=== PATIENT | male | born 1960 | race Caucasian/White ===

== ENCOUNTER 2017-11-13 18:38 | Inpatient (IN) | payer MEDICARE ==
--- NOTE | 2017-11-13 19:04 | ED ---
General Adult HPI - General Chief complaint: Chest Pain Stated complaint: chest pain Time Seen by Provider: 11/13/17 18:41 Source: patient, EMS, RN notes reviewed, old records reviewed Mode of arrival: EMS Limitations: no limitations - History of Present Illness Initial comments: This is a 49-year-old male to the ER for evaluation. This patient resents today for evaluation regards to chest pain. Severe anterior chest pain with history of heart disease. Patient has a complicated medical history. Patient has continued chest pain currently chest pain cervical he was at [facility] earlier today was going through withdrawal from alcohol. Denies nausea vomiting , denies fever cough or congestion MD Complaint: Chest pain -: hour(s) Location: chest, back, left Radiation: extremity Severity scale (1-10): 6 Quality: aching Consistency: constant Improves with: none Worsens with: none Associated Symptoms: shortness of breath, weakness Treatments Prior to Arrival: none - Related Data Home Medications Medication Instructions Recorded Confirmed Acetaminophen Tab [Tylenol] 650 mg PO Q4H PRN 11/13/17 11/13/17 Atorvastatin [Lipitor] 40 mg PO DAILY@62911/13/17 11/13/17 Chlorpheniramine Maleate 4 mg PO Q4H PRN 11/13/17 11/13/17 [Chlor-Trimeton] Folic Acid 1 mg PO DAILY@62911/13/17 11/13/17 Ibuprofen [Motrin] 600 mg PO Q6H PRN 11/13/17 11/13/17 Multivitamins, Thera [Multivitamin 1 tab PO DAILY 11/13/17 11/13/17 (formulary)] Pantoprazole Sodium [Protonix] 40 mg PO DAILY@62911/13/17 11/13/17 Thiamine [Vitamin B-1] 100 mg PO DAILY 11/13/17 11/13/17 Tigan 200mg Injection 200 mg IM Q6H PRN 11/13/17 11/13/17 traZODone HCL 150 mg PO HS 11/13/17 11/13/17 Previous Rx's Medication Instructions Recorded Aspirin 81 mg PO DAILY #30 chewable 11/18/17 Clopidogrel [Plavix] 75 mg PO DAILY #30 tab 11/18/17 Magnesium Oxide [Mag-Ox] 400 mg PO TID #90 tab 11/18/17 Metoprolol Tartrate [Lopressor] 25 mg PO BID #60 tab 11/18/17 Nitroglycerin Sl Tabs [Nitrostat] 0.4 mg SUBLINGUAL Q5M PRN #30 tab 11/18/17 amLODIPine [Norvasc] 5 mg PO DAILY #30 tab 11/18/17 Allergies Allergy/AdvReac Type Severity Reaction Status Date / Time morphine Allergy Unknown Verified 11/13/17 23:31 Review of Systems ROS Statement: Those systems with pertinent positive or pertinent negative responses have been documented in the HPI. ROS Other: All systems not noted in ROS Statement are negative. Past Medical History Past Medical History: Chest Pain / Angina, COPD, CVA/TIA Additional Past Medical History / Comment(s): Stroke with induced coma for 1.5 months, poor circulation, one marble sized kidney, History of Any Multi-Drug Resistant Organisms: None Reported Past Surgical History: Coronary Bypass/CABG Additional Past Surgical History / Comment(s): Quadruple bypass Past Psychological History: No Psychological Hx Reported Smoking Status: Current every day smoker Past Alcohol Use History: Abuse, Heavy Past Drug Use History: None Reported - Past Family History Mother Family Medical History: Myocardial Infarction (NM) Father Family Medical History: Myocardial Infarction (NM) General Exam Limitations: no limitations General appearance: alert, in no apparent distress, anxious Head exam: Present: atraumatic, normocephalic, normal inspection Eye exam: Present: normal appearance, PERRL, EOMI. Absent: scleral icterus, conjunctival injection, periorbital swelling ENT exam: Present: normal exam, mucous membranes moist Neck exam: Present: normal inspection. Absent: tenderness, meningismus, lymphadenopathy Respiratory exam: Present: normal lung sounds bilaterally. Absent: respiratory distress, wheezes, rales, rhonchi, stridor Cardiovascular Exam: Present: normal rhythm, tachycardia, normal heart sounds. Absent: systolic murmur, diastolic murmur, rubs, gallop, clicks GI/Abdominal exam: Present: soft, normal bowel sounds. Absent: distended, tenderness, guarding, rebound, rigid Extremities exam: Present: normal inspection, full ROM, normal capillary refill. Absent: tenderness, pedal edema, joint swelling, calf tenderness Back exam: Present: normal inspection Neurological exam: Present: alert, oriented X3, CN II-XII intact Psychiatric exam: Present: normal affect, normal mood Skin exam: Present: warm, dry, intact, normal color. Absent: rash Course Vital Signs 11/13/17 11/13/17 11/13/17 18:41 19:16 19:25 Temperature 98.4 F Pulse Rate 110 H 105 H Pulse Rate [ 110 H Pulse Oximetery ] Respiratory 18 20 Rate Blood Pressure 160/93 146/98 O2 Sat by Pulse 99 98 Oximetry 11/13/17 11/13/17 11/13/17 20:17 21:38 22:32 Temperature 97 F L Pulse Rate 111 H 108 H 95 Pulse Rate [ Pulse Oximetery ] Respiratory 18 18 18 Rate Blood Pressure 152/74 161/91 154/91 O2 Sat by Pulse 98 98 98 Oximetry - Reevaluation(s) Reevaluation #1: states he continues to have chest pain Medical records thoroughly reviewed EKG Findings - EKG Comments: EKG Findings:: EKG shows sinus rhythm rate of tachycardia 107, UT 142, QRS 80, QTC 453 Medical Decision Making - Medical Decision Making 49 male the ER significant medical history of heart disease coming in with chest pain today. Patient be admitted for cardiac observation and evaluation and treatment - Lab Data Result diagrams: 11/18/17 06:30 11/18/17 06:30 Lab Results 11/13/17 11/13/17 11/13/17 Range/Units 19:45 19:45 19:45 WBC 4.3 (3.8-10.6) k/uL RBC 3.27 L (4.30-5.90) m/uL Hgb 9.2 L (13.0-17.5) gm/dL Hct 29.4 L (39.0-53.0) % MCV 90.0 (80.0-100.0) fL MCH 28.3 (25.0-35.0) pg MCHC 31.4 (31.0-37.0) g/dL RDW 18.4 H (11.5-15.5) % Plt Count 181 (150-450) k/uL Neutrophils % (Manual) 66 % Lymphocytes % (Manual) 12 % Monocytes % (Manual) 22 % Myelocytes % % Neutrophils # (Manual) 2.84 (1.3-7.7) k/uL Lymphocytes # (Manual) 0.52 L (1.0-4.8) k/uL Monocytes # (Manual) 0.95 (0-1.0) k/uL Myelocytes # (Manual) (0) k/uL Nucleated RBCs 0 (0-0) /100 WBC Manual Slide Review Performed Large Platelets Present Polychromasia Present Hypochromasia Moderate Poikilocytosis (manual Present Anisocytosis Slight Tear Drop Cells PT 10.5 (9.0-12.0) sec INR 1.1 (<1.2) APTT 22.7 (22.0-30.0) sec Sodium 133 L (137-145) mmol/L Potassium 4.2 (3.5-5.1) mmol/L Chloride 97 L (98-107) mmol/L Carbon Dioxide 23 (22-30) mmol/L Anion Gap 13 mmol/L BUN 14 (9-20) mg/dL Creatinine 0.92 (0.66-1.25) mg/dL Est GFR (CKD-EPI)AfAm >90 (>60 ml/min/1.73 sqM) Est GFR (CKD-EPI)NonAf >90 (>60 ml/min/1.73 sqM) Glucose 97 (74-99) mg/dL Calcium 9.8 (8.4-10.2) mg/dL Magnesium 1.2 L (1.6-2.3) mg/dL Total Bilirubin 0.9 (0.2-1.3) mg/dL AST 87 H (17-59) U/L ALT 45 (21-72) U/L Alkaline Phosphatase 176 H (38-126) U/L Total Creatine Kinase (55-170) U/L CK-MB (CK-2) (0.0-2.4) ng/mL CK-MB (CK-2) Rel Index Troponin I (0.000-0.034) ng/mL Total Protein 7.2 (6.3-8.2) g/dL Albumin 4.2 (3.5-5.0) g/dL Triglycerides (<150) mg/dL Cholesterol (<200) mg/dL LDL Cholesterol, Calc (0-99) mg/dL HDL Cholesterol (40-60) mg/dL 11/13/17 11/14/17 11/14/17 Range/Units 19:45 01:11 05:34 WBC (3.8-10.6) k/uL RBC (4.30-5.90) m/uL Hgb (13.0-17.5) gm/dL Hct (39.0-53.0) % MCV (80.0-100.0) fL MCH (25.0-35.0) pg MCHC (31.0-37.0) g/dL RDW (11.5-15.5) % Plt Count (150-450) k/uL Neutrophils % (Manual) % Lymphocytes % (Manual) % Monocytes % (Manual) % Myelocytes % % Neutrophils # (Manual) (1.3-7.7) k/uL Lymphocytes # (Manual) (1.0-4.8) k/uL Monocytes # (Manual) (0-1.0) k/uL Myelocytes # (Manual) (0) k/uL Nucleated RBCs (0-0) /100 WBC Manual Slide Review Large Platelets Polychromasia Hypochromasia Poikilocytosis (manual Anisocytosis Tear Drop Cells PT (9.0-12.0) sec INR (<1.2) APTT (22.0-30.0) sec Sodium (137-145) mmol/L Potassium (3.5-5.1) mmol/L Chloride (98-107) mmol/L Carbon Dioxide (22-30) mmol/L Anion Gap mmol/L BUN (9-20) mg/dL Creatinine (0.66-1.25) mg/dL Est GFR (CKD-EPI)AfAm (>60 ml/min/1.73 sqM) Est GFR (CKD-EPI)NonAf (>60 ml/min/1.73 sqM) Glucose (74-99) mg/dL Calcium (8.4-10.2) mg/dL Magnesium (1.6-2.3) mg/dL Total Bilirubin (0.2-1.3) mg/dL AST (17-59) U/L ALT (21-72) U/L Alkaline Phosphatase (38-126) U/L Total Creatine Kinase 62 55 41 L (55-170) U/L CK-MB (CK-2) 0.8 0.8 0.7 (0.0-2.4) ng/mL CK-MB (CK-2) Rel Index 1.3 1.5 1.7 Troponin I <0.012 0.013 <0.012 (0.000-0.034) ng/mL Total Protein (6.3-8.2) g/dL Albumin (3.5-5.0) g/dL Triglycerides (<150) mg/dL Cholesterol (<200) mg/dL LDL Cholesterol, Calc (0-99) mg/dL HDL Cholesterol (40-60) mg/dL 11/14/17 11/14/17 11/14/17 Range/Units 05:34 05:34 05:34 WBC (3.8-10.6) k/uL RBC (4.30-5.90) m/uL Hgb (13.0-17.5) gm/dL Hct (39.0-53.0) % MCV (80.0-100.0) fL MCH (25.0-35.0) pg MCHC (31.0-37.0) g/dL RDW (11.5-15.5) % Plt Count 159 (150-450) k/uL Neutrophils % (Manual) % Lymphocytes % (Manual) % Monocytes % (Manual) % Myelocytes % % Neutrophils # (Manual) (1.3-7.7) k/uL Lymphocytes # (Manual) (1.0-4.8) k/uL Monocytes # (Manual) (0-1.0) k/uL Myelocytes # (Manual) (0) k/uL Nucleated RBCs (0-0) /100 WBC Manual Slide Review Large Platelets Polychromasia Hypochromasia Poikilocytosis (manual Anisocytosis Tear Drop Cells PT (9.0-12.0) sec INR (<1.2) APTT 29.5 (22.0-30.0) sec Sodium (137-145) mmol/L Potassium (3.5-5.1) mmol/L Chloride (98-107) mmol/L Carbon Dioxide (22-30) mmol/L Anion Gap mmol/L BUN (9-20) mg/dL Creatinine (0.66-1.25) mg/dL Est GFR (CKD-EPI)AfAm (>60 ml/min/1.73 sqM) Est GFR (CKD-EPI)NonAf (>60 ml/min/1.73 sqM) Glucose (74-99) mg/dL Calcium (8.4-10.2) mg/dL Magnesium (1.6-2.3) mg/dL Total Bilirubin (0.2-1.3) mg/dL AST (17-59) U/L ALT (21-72) U/L Alkaline Phosphatase (38-126) U/L Total Creatine Kinase (55-170) U/L CK-MB (CK-2) (0.0-2.4) ng/mL CK-MB (CK-2) Rel Index Troponin I (0.000-0.034) ng/mL Total Protein (6.3-8.2) g/dL Albumin (3.5-5.0) g/dL Triglycerides 56 (<150) mg/dL Cholesterol 175 (<200) mg/dL LDL Cholesterol, Calc 79 (0-99) mg/dL HDL Cholesterol 85 H (40-60) mg/dL 11/14/17 11/15/17 11/15/17 Range/Units 05:34 06:52 06:52 WBC 3.5 L (3.8-10.6) k/uL RBC 2.88 L (4.30-5.90) m/uL Hgb 7.9 L (13.0-17.5) gm/dL Hct 25.5 L (39.0-53.0) % MCV 88.5 (80.0-100.0) fL MCH 27.3 (25.0-35.0) pg MCHC 30.9 L (31.0-37.0) g/dL RDW 18.2 H (11.5-15.5) % Plt Count 191 (150-450) k/uL Neutrophils % (Manual) 59 % Lymphocytes % (Manual) 15 % Monocytes % (Manual) 26 % Myelocytes % 1 % Neutrophils # (Manual) 2.07 (1.3-7.7) k/uL Lymphocytes # (Manual) 0.53 L (1.0-4.8) k/uL Monocytes # (Manual) 0.91 (0-1.0) k/uL Myelocytes # (Manual) 0.04 H (0) k/uL Nucleated RBCs 0 (0-0) /100 WBC Manual Slide Review Large Platelets Polychromasia Hypochromasia Moderate Poikilocytosis (manual Present Anisocytosis Slight Tear Drop Cells Present PT (9.0-12.0) sec INR (<1.2) APTT (22.0-30.0) sec Sodium 134 L (137-145) mmol/L Potassium 4.3 (3.5-5.1) mmol/L Chloride 103 (98-107) mmol/L Carbon Dioxide 25 (22-30) mmol/L Anion Gap 6 mmol/L BUN 13 (9-20) mg/dL Creatinine 0.88 (0.66-1.25) mg/dL Est GFR (CKD-EPI)AfAm >90 (>60 ml/min/1.73 sqM) Est GFR (CKD-EPI)NonAf >90 (>60 ml/min/1.73 sqM) Glucose 106 H (74-99) mg/dL Calcium 8.8 (8.4-10.2) mg/dL Magnesium 1.3 L 0.9 L* (1.6-2.3) mg/dL Total Bilirubin (0.2-1.3) mg/dL AST (17-59) U/L ALT (21-72) U/L Alkaline Phosphatase (38-126) U/L Total Creatine Kinase (55-170) U/L CK-MB (CK-2) (0.0-2.4) ng/mL CK-MB (CK-2) Rel Index Troponin I (0.000-0.034) ng/mL Total Protein (6.3-8.2) g/dL Albumin (3.5-5.0) g/dL Triglycerides (<150) mg/dL Cholesterol (<200) mg/dL LDL Cholesterol, Calc (0-99) mg/dL HDL Cholesterol (40-60) mg/dL - Radiology Data Radiology results: report reviewed (Chest x-rays negative for acute disease), image reviewed Critical Care Time Critical Care Time: Yes Total Critical Care Time: 31 Disposition Clinical Impression: Chest pain Disposition: ADMITTED IP TO THIS [facility] Condition: Undetermined Is patient prescribed a controlled substance at d/c from ED?: No
--- NOTE | 2017-11-13 20:04 | XR ---
EXAMINATION TYPE: XR chest 2V DATE OF EXAM: 11/13/2017 COMPARISON: NONE HISTORY: Chest pain TECHNIQUE: Frontal and lateral views of the chest are obtained. FINDINGS: There is no heart failure nor confluent pneumonic infiltrate. There is right upper lobe ca lcified granuloma. There are sternal wires. Thoracic aorta is atheromatous. There is no pleural effus ion. Bony thorax is intact. IMPRESSION: No active cardiopulmonary disease.
[2017-11-13 20:45] LABS: INR 1.1 (<1.2); Partial Thromboplastin Time 22.7 sec (22.0-30.0); Prothrombin Time 10.5 sec (9.0-12.0)
[2017-11-13 20:48] LABS: Anisocytosis Slight; HCT 29.4 % (39.0-53.0); HGB 9.2 gm/dL (13.0-17.5); Hypochromasia Moderate; MCH 28.3 pg (25.0-35.0); MCHC 31.4 g/dL (31.0-37.0); Mean Platelet Volume 7.5; Platelet Count 181 k/uL (150-450); RBC 3.27 m/uL (4.30-5.90); RDW 18.4 % (11.5-15.5); WBC 4.3 k/uL (3.8-10.6)
[2017-11-13 20:50] LABS: ALT 45 U/L (21-72); AST 87 U/L (17-59); Albumin 4.2 g/dL (3.5-5.0); Alkaline Phosphatase 176 U/L (38-126); Anion Gap 13 mmol/L; Blood Urea Nitrogen 14 mg/dL (9-20); Calcium 9.8 mg/dL (8.4-10.2); Carbon Dioxide 23 mmol/L (22-30); Chloride 97 mmol/L (98-107); Glucose 97 mg/dL (74-99); Magnesium 1.2 mg/dL (1.6-2.3); Potassium 4.2 mmol/L (3.5-5.1); Sodium 133 mmol/L (137-145); Total Bilirubin 0.9 mg/dL (0.2-1.3); Total Protein 7.2 g/dL (6.3-8.2)
[2017-11-13 21:05] LABS: Creatine Kinase 62 U/L (55-170)
[2017-11-13 21:18] LABS: Creatine Kinase MB 0.8 ng/mL (0.0-2.4); Troponin I <0.012 ng/mL (0.000-0.034)
[2017-11-13 21:19] LABS: Lymphocytes # (M) 0.52 k/uL (1.0-4.8); Monocytes # (M) 0.95 k/uL (0-1.0); Neutrophils # (M) 2.84 k/uL (1.3-7.7); Neutrophils % (M) 66 %; Nucleated Red Blood Cells 0 /100 WBC (0-0); Total Cells Counted 100
[2017-11-13 21:20] LABS: Large Platelets Present; Poikilocytosis (M) Present; Polychromasia Present
[2017-11-13] MEDS ORDERED: HEPARIN SODIUM,PORCINE 5,000 UNIT/ML 1 ML VIAL IV PRN (22:12)
[2017-11-13] MEDS ORDERED: ASPIRIN 81 MG PO STA (22:12)
[2017-11-13] MEDS ORDERED: HEPARIN SODIUM,PORCINE 5,000 UNIT/ML 1 ML VIAL IV ONE (22:12)
[2017-11-13] MEDS ORDERED: NITROGLYCERIN SL TABS 0.4 MG TAB SUBLINGUAL PRN (22:12)
[2017-11-13] MEDS ORDERED: HEPARIN SOD,PORK IN 0.45% NACL 25,000 UNIT in 0.45% NACL 1 500ML.BAG IV SCH (22:15)
[2017-11-13] MEDS ORDERED: ONDANSETRON 4 MG TAB PO PRN (23:03)
[2017-11-13] MEDS ORDERED: TRIMETHOBENZAMIDE 300 MG CAP PO PRN (23:03)
[2017-11-14] MEDS: traZODone HCL 50 MG TAB PO SCH ×2 (00:05→19:37)
[2017-11-14] MEDS: ACETAMINOPHEN TAB 325 MG TAB PO PRN ×4 (00:05→19:37)
[2017-11-14 02:25] LABS: Creatine Kinase MB 0.8 ng/mL (0.0-2.4); Troponin I 0.013 ng/mL (0.000-0.034)
[2017-11-14 06:04] LABS: Platelet Count 159 k/uL (150-450)
[2017-11-14 06:12] LABS: Cholesterol 175 mg/dL (<200); HDL Cholesterol 85 mg/dL (40-60); LDL Cholesterol,Calculated 79 mg/dL (0-99); Triglycerides 56 mg/dL (<150)
[2017-11-14] MEDS: PANTOPRAZOLE 40 MG TABLET PO SCH (06:16)
[2017-11-14] MEDS: FOLIC ACID 1 MG TAB PO SCH (06:16)
[2017-11-14] MEDS: ATORVASTATIN 40 MG TAB PO SCH (06:16)
[2017-11-14 06:27] LABS: Creatine Kinase 41 U/L (55-170)
[2017-11-14 06:40] LABS: Creatine Kinase MB 0.7 ng/mL (0.0-2.4); Troponin I <0.012 ng/mL (0.000-0.034)
[2017-11-14] MEDS: ASPIRIN 325 MG TAB PO SCH (08:50)
[2017-11-14] MEDS: METOPROLOL TARTRATE 25 MG TAB PO SCH ×2 (08:50→19:38)
--- NOTE | 2017-11-14 10:54 | ECHOF ---
Referral Reason:chest pain MEASUREMENTS -------- HEIGHT: 177.8 cm WEIGHT: 56.7 kg BP: 94/57 RVIDd: 2.9 cm (< 3.3) IVSd: 1.2 cm (0.6 - 1.1) LVIDd: 4.1 cm (3.9 - 5.3) LVPWd: 1.2 cm (0.6 - 1.1) IVSs: 1.7 cm LVIDs: 3.0 cm LVPWs: 1.5 cm LA Diam: 3.3 cm (2.7 - 3.8) LAESV Index (A-L): 35.27 ml/m Ao Diam: 3.4 cm (2.0 - 3.7) AV Cusp: 2.2 cm (1.5 - 2.6) MV EXCURSION: 12.451 mm (> 18.000) MV EF SLOPE: 29 mm/s (70 - 150) EPSS: 0.5 cm MV E Navarro: 0.99 m/s MV DecT: 187 ms MV A Navarro: 1.31 m/s MV E/A Ratio: 0.76 RAP: 5.00 mmHg RVSP: 24.39 mmHg FINDINGS -------- Sinus rhythm. This was a technically good study. The left ventricular size is normal. There is borderline concentric left ventricular hypertrophy. Overall left ventricular systolic function is normal with, an EF between 55 - 60 %. The right ventricle is normal in size. LA is moderately dilated 34-39 ml/m2 The right atrium is normal in size. Aortic valve is trileaflet and is mildly thickened. The mitral valve leaflets are mildly thickened. Mild mitral annular calcification present. Mild m itral regurgitation is present. There is moderately calcified chordae. Trace tricuspid regurgitation present. Right ventricular systolic pressure is normal at < 35 mmHg. There is no pulmonic regurgitation present. The aortic root size is normal. Normal inferior vena cava with normal inspiratory collapse consistent with estimated right atrial pre ssure of 5 mmHg. There is no pericardial effusion. CONCLUSIONS -------- 1. Sinus rhythm. 2. This was a technically good study. 3. The left ventricular size is normal. 4. There is borderline concentric left ventricular hypertrophy. 5. Overall left ventricular systolic function is normal with, an EF between 55 - 60 %. 6. The right ventricle is normal in size. 7. LA is moderately dilated 34-39 ml/m2 8. The right atrium is normal in size. 9. Aortic valve is trileaflet and is mildly thickened. 10. The mitral valve leaflets are mildly thickened. 11. Mild mitral annular calcification present. 12. Mild mitral regurgitation is present. 13. There is moderately calcified chordae. 14. Trace tricuspid regurgitation present. 15. Right ventricular systolic pressure is normal at < 35 mmHg. 16. There is no pulmonic regurgitation present. 17. The aortic root size is normal. 18. Normal inferior vena cava with normal inspiratory collapse consistent with estimated right atrial pressure of 5 mmHg. 19. There is no pericardial effusion. NUMEROLOGIST: Paz Zuniga RDCS
--- NOTE | 2017-11-14 10:58 | CONS ---
CONSULTATION CHIEF COMPLAINT: Chest pain. Misael is a 57-year-old gentleman with history of coronary artery disease, status post CABG, COPD, with history of ETOH abuse, who is currently going through [facility], comes in complaining of chest pain. This chest discomfort is precordial at rest without definite radiation to neck, back, and mild intensity and unassociated with diaphoresis. He came in with these symptoms and the chest pain had gradually resolved. There was no clear-cut relationship between nitroglycerin and his chest pain. At the time of my evaluation, he is pain-free and hemodynamically stable. EKG does not reveal acute ischemic changes and cardiac enzymes have been negative. I am going to stop the IV heparin, Hep-Lock is IV, ambulate him and if he is feeling well, discharge him home and schedule him for an outpatient stress test. PAST MEDICAL HISTORY: Significant for coronary artery disease, status post CABG, dyslipidemia and alcohol abuse. MEDICATIONS: Include Lipitor, folic acid, Motrin, Toprol, Zofran, Protonix, Tigan, trazodone. ALLERGIC: To MORPHINE. FAMILY HISTORY: Significant for premature coronary artery disease. SOCIAL HISTORY: Significant for smoking and ETOH abuse. REVIEW OF SYSTEMS: HEENT is unremarkable. CARDIAC: As described above. RESPIRATORY: As described above. GI: Negative. GENITOURINARY: Negative. ALLERGY/IMMUNOLOGY: Negative. SKIN: Negative. MUSCULOSKELETAL: Negative. ENDOCRINE: Negative. NEUROLOGICAL: Negative. DERM: Negative. CONSTITUTIONAL: Negative. PSYCHOSOCIAL: Significant for ETOH abuse. PHYSICAL EXAM: He is comfortable at rest. Vital signs are stable. There is no jugular venous distention. Carotid upstroke is normal. There is no bruit. Chest exam reveals diminished air entry at the bases. Heart exam reveals first and second heart sounds. No gallop. Abdomen is soft, nontender. Exam of extremities did not reveal any edema. Peripheral pulses are palpable. LIGHT INDUSTRIAL exam did not reveal focal neurological deficits. LABS: Show a hemoglobin of 9.2, platelet count is 180. Potassium is 4.2, creatinine is 0.9. Three sets of troponins are negative, LDL cholesterol is 79. ASSESSMENT: 1. Precordial chest pain. 2. Coronary artery disease, status post coronary artery bypass grafting. 3. ETOH abuse, going through alcohol rehab. PLAN: Myocardial infarction had been ruled out. Will ambulate him. If he is feeling well, discharge him home and arrange an outpatient stress test. I will obtain a 2D echo prior to discharge. GERTRUDE / BLAINE: [id number] /
[2017-11-14] MEDS ORDERED: LORazepam 2 MG/ML INJ IV PRN ×3 (12:06)
[2017-11-14] MEDS: MULTIVITAMINS, THERA 1 EACH TAB PO SCH (12:26)
[2017-11-14] MEDS: NITROGLYCERIN OINT 1 INCH/GM PACKET TOPICAL SCH ×2 (15:57→23:19)
[2017-11-14] MEDS ORDERED: diphenhydrAMINE 25 MG CAP PO PRN (17:22)
--- NOTE | 2017-11-14 19:22 | HP ---
HISTORY AND PHYSICAL CHIEF COMPLAINT: Chest pain. HISTORY OF PRESENT ILLNESS: This 57-year-old gentleman with a past medical history of multiple medical problems including COPD, history of CVA, TIA, history of stroke, CAD and CABG, being followed by a primary physician elsewhere was in [facility] for alcohol abuse. The patient is complaining of precordial chest pain without any definite radiation. The patient also some tremors also. Because of increasing difficulty, the patient came to [facility] and was admitted for further evaluation. Troponins are negative. Cardiology evaluation in progress. EKG done showed some ST-T changes, nonprogression R- waves also in the anterior leads. There is no history of fever, rigors or chills. No history of headache, loss of consciousness, seizures. PAST MEDICAL HISTORY: History of COPD, CVA, TIA, history of CAD, CABG, history of stroke, history of EtOH, history of nicotine dependence. MEDICATIONS: Prior to admission include: 1. Trazodone 50 mg q.h.s. 2. Tigan 300 mg q.6h p.r.n. 3. Vitamin B1 100 mg p.o. daily. 4. Protonix 40 mg p.o. daily. 5. Zofran 4 mg a.m. q.6h p.r.n. 6. Zofran 8 mg q.6 hours. 7. Multivitamins 1 p.o. daily. 8. Toprol-XL 12.5 mg p.o. daily. 9. Motrin 600 mg q.6h p.r.n. 10.Folic acid 1 mg p.o. daily. 11.Chlorpheniramine maleate 4 mg q.4h p.r.n. 12.Lipitor 40 mg p.o. daily. 13.Tylenol 650 q.4h p.r.n. ALLERGIES: MORPHINE. FAMILY HISTORY: History of myocardial infarction in the family. SOCIAL HISTORY: History of smoking and alcohol. REVIEW OF SYSTEMS: ENT: No diminished vision. No diminished hearing. Cardio system: As mentioned earlier. RESPIRATORY: As mentioned earlier. GI: No nausea or vomiting. no dysuria. Nervous system: No numbness or weakness. ALLERGY/IMMUNOLOGY: No asthma or hayfever. MUSCULOSKELETAL: As mentioned earlier. HEMATOLOGY/ONCOLOGY: No anemia. ENDOCRINE: No diabetes, hypothyroidism. CONSTITUTIONAL: As mentioned earlier. DERMATOLOGY: Negative. RHEUMATOLOGY: Negative. PSYCHIATRIC: As mentioned earlier. PHYSICAL EXAMINATION: Alert, oriented x3. Pulse 76, blood pressure 118/67, respirations 16, temperature 97.7. Pulse ox 100 percent on room air. HEENT: Conjunctivae normal. Oral mucosa moist. Neck is no jugular venous distention. No carotid bruit. No lymph node enlargement. Cardiovascular: S1, S2. Respiratory: Breath sounds diminished in the bases. A few scattered rhonchi and crackles. ABDOMEN: Soft, nontender. No mass palpable. Legs: No edema. No swelling. NERVOUS SYSTEM: Higher functions as mentioned earlier. Moves all four extremities. No focal motor or sensory deficits. Lymphatics: No lymph nodes palpable in the neck, axillae or groin. SKIN: No ulcer, rashes or bleeding. LABS: WBC 4.3, hemoglobin 9.2, sodium 133. ASSESSMENT: 1. Chest pain possible unstable angina. 2. History of ETOH. 3. Hypomagnesemia. 4. Increased AST. 5. Hyponatremia. 6. Anemia of chronic disease. 7. History of coronary artery disease, coronary artery bypass grafting. 8. Chronic obstructive pulmonary disease. 9. Cerebrovascular accident, transient ischemic attack. 10.History of nicotine dependence. 11.History of ETOH. RECOMMENDATIONS AND DISCUSSION: In this 57-year-old gentleman who presented with multiple complex medical issues, we will monitor the patient closely, continue the current management and symptomatic treatment. Otherwise, I would recommend resume the home medications. Closely follow with Cardiology and I would also recommend CIAZ protocol. Possible stress test. Symptomatic treatment. Prognosis guarded because of multiple complex medical issues. Further recommendations to follow. Recommend check magnesium as well. Overall prognosis guarded because of multiple complex medical issues. Further recommendations to follow. See orders for details. MMODL / IJN: [id number] /
[2017-11-15] MEDS: ATORVASTATIN 40 MG TAB PO SCH (05:40)
[2017-11-15] MEDS: PANTOPRAZOLE 40 MG TABLET PO SCH (05:40)
[2017-11-15] MEDS: FOLIC ACID 1 MG TAB PO SCH (05:40)
[2017-11-15 07:34] LABS: Anion Gap 6 mmol/L; Blood Urea Nitrogen 13 mg/dL (9-20); Calcium 8.8 mg/dL (8.4-10.2); Carbon Dioxide 25 mmol/L (22-30); Chloride 103 mmol/L (98-107); Glucose 106 mg/dL (74-99); Potassium 4.3 mmol/L (3.5-5.1); Sodium 134 mmol/L (137-145)
[2017-11-15 07:39] LABS: Anisocytosis Slight; HCT 25.5 % (39.0-53.0); HGB 7.9 gm/dL (13.0-17.5); Hypochromasia Moderate; MCH 27.3 pg (25.0-35.0); MCHC 30.9 g/dL (31.0-37.0); MCV 88.5 fL (80.0-100.0); Platelet Count 191 k/uL (150-450); RBC 2.88 m/uL (4.30-5.90); RDW 18.2 % (11.5-15.5); WBC 3.5 k/uL (3.8-10.6)
[2017-11-15 07:52] LABS: Magnesium 0.9 mg/dL (1.6-2.3)
[2017-11-15] MEDS: NITROGLYCERIN OINT 1 INCH/GM PACKET TOPICAL SCH ×2 (08:39→11:52)
[2017-11-15] MEDS: ASPIRIN 325 MG TAB PO SCH (09:07)
[2017-11-15] MEDS: METOPROLOL TARTRATE 25 MG TAB PO SCH ×2 (09:07→22:25)
[2017-11-15] MEDS: MULTIVITAMINS, THERA 1 EACH TAB PO SCH (09:07)
[2017-11-15] MEDS: MAGNESIUM SULFATE-D5W PMX 1 GM in DEXTROSE/WATER 1 100ML.BAG IVPB SCH ×5 (09:07→15:33)
[2017-11-15] MEDS: THIAMINE 100 MG TAB PO SCH (09:07)
[2017-11-15 10:05] LABS: Lymphocytes # (M) 0.53 k/uL (1.0-4.8); Monocytes # (M) 0.91 k/uL (0-1.0); Myelocytes # (M) 0.04 k/uL (0); Myelocytes % 1 %; Neutrophils # (M) 2.07 k/uL (1.3-7.7); Neutrophils % (M) 59 %; Nucleated Red Blood Cells 0 /100 WBC (0-0); Total Cells Counted 200
[2017-11-15 10:07] LABS: Poikilocytosis (M) Present; Tear Drop Cells Present
[2017-11-15] MEDS: amLODIPine 5 MG TAB PO SCH (11:00)
--- NOTE | 2017-11-15 12:38 | PN ---
PROGRESS NOTE DATE OF SERVICE: 11/15/2017. HISTORY: Misael is a 57-year-old gentleman with history of coronary artery disease, status post CABG, was admitted to hospital with chest pain and ruled out for myocardial infarction. He is currently at [facility] going through alcohol rehab. The plan was to discharge him home and consider outpatient workup, but he had an episode of chest pain again yesterday and early this morning. His chest discomfort has both typical and atypical components to it. I am going to obtain a Lexiscan on him tomorrow and if this is normal discharge him home and if there are issues, decide on further course of action. EXAM: He is comfortable at rest. Vital signs are stable. Chest exam reveals good air entry bilaterally. Heart exam reveals first and second heart sounds. No gallop. Abdomen is soft. Exam of extremities did not reveal any edema. Peripheral pulses are palpable. ASSESSMENT: Precordial chest pain in a patient with known coronary artery disease, status post CABG. PLAN: The patient will undergo a stress test tomorrow and if this looks good, will be discharged home. He had an echocardiogram that showed normal LV systolic function. MMODL / IJN: [id number] /
[2017-11-15] MEDS: MAGNESIUM OXIDE 400 MG TAB PO SCH ×2 (17:20→22:25)
--- NOTE | 2017-11-15 17:35 | PN ---
PROGRESS NOTE DATE OF SERVICE: 11/15/2017 This 57-year-old gentleman with chest pain, had recurrent chest pains last night and today also. The patient has severe hypomagnesemia. No chest pain. No palpitations. No fever. Cardiology is following the patient for possible stress test in the morning. A 2D echo with Doppler showed ejection fraction 50-60 percent and minimal valvular abnormalities also noted. An EKG done this morning showed sinus tachycardia. No in the anterior leads. No chest pain. No palpitations. No fever. PHYSICAL EXAMINATION: On exam, alert and oriented x3. Pulse 69, blood pressure 116/68, respirations 16, temperature 97.9, pulse ox 98% on room air. HEENT conjunctivae normal. Oral mucosa moist. Neck is no jugular venous distention. No carotid bruit. No lymph node enlargement. Cardiovascular: S1, S2. Respirations: Breath sounds diminished in the bases. No rhonchi and no crackles. Abdomen is soft, nontender. Legs are no edema, no swelling. Central nervous system: No focal deficits. LABS: WBC 3.2, hemoglobin 7.9, sodium 134, magnesium 0.9. ASSESSMENT: 1. Chest pain possible unstable angina. 2. History of EtOH. 3. Hypomagnesemia, severe. 4. Increased AST. 5. Hyponatremia. 6. Anemia of chronic disease. 7. History of coronary artery disease, coronary artery bypass grafting. 8. Non-progression on the EKG. 9. Chronic obstructive pulmonary disease. 10.Cerebrovascular accident, transient ischemic attack. 11.History of nicotine dependence. 12.History of EtOH. 13.Hyponatremia. 14.Anemia, possibly secondary from alcohol. RECOMMENDATIONS AND DISCUSSION: In this 57-year-old gentleman who presented with multiple complex medical issues , we will monitor the patient closely. Continue the current medications, management and symptomatic treatment. Otherwise, stress test. Supplement magnesium. Continue to monitor. Prognosis guarded because of multiple complex medical issues. Further recommendations to follow. MMODL / IJN: [id number] / MTDD
[2017-11-15] MEDS: MELATONIN 3 MG TABLET PO SCH (21:00)
[2017-11-15] MEDS: traZODone HCL 50 MG TAB PO SCH (22:25)
[2017-11-16] MEDS: NITROGLYCERIN OINT 1 INCH/GM PACKET TOPICAL SCH ×3 (06:04→15:13)
[2017-11-16 06:15] LABS: Anisocytosis Slight; HCT 29.1 % (39.0-53.0); HGB 8.9 gm/dL (13.0-17.5); Hypochromasia Marked; MCH 27.5 pg (25.0-35.0); MCHC 30.5 g/dL (31.0-37.0); MCV 90.2 fL (80.0-100.0); Mean Platelet Volume 7.5; Platelet Count 228 k/uL (150-450); RBC 3.23 m/uL (4.30-5.90); WBC 5.4 k/uL (3.8-10.6)
[2017-11-16 06:38] LABS: Anion Gap 10 mmol/L; Blood Urea Nitrogen 11 mg/dL (9-20); Calcium 8.8 mg/dL (8.4-10.2); Carbon Dioxide 19 mmol/L (22-30); Chloride 101 mmol/L (98-107); Glucose 111 mg/dL (74-99); Magnesium 1.6 mg/dL (1.6-2.3); Potassium 4.9 mmol/L (3.5-5.1); Sodium 130 mmol/L (137-145)
[2017-11-16 06:42] LABS: Eosinophils # (M) 0.05 k/uL (0-0.7); Lymphocytes # (M) 0.54 k/uL (1.0-4.8); Monocytes # (M) 0.92 k/uL (0-1.0); Neutrophils # (M) 3.89 k/uL (1.3-7.7); Neutrophils % (M) 72 %; Nucleated Red Blood Cells 0 /100 WBC (0-0); Poikilocytosis (M) Present; Total Cells Counted 100
[2017-11-16 06:44] LABS: Crenated RBC Present
[2017-11-16] MEDS ORDERED: CAFFEINE CITRATE 60 MG/3 ML VIAL IV PRN (08:00)
[2017-11-16] MEDS: FOLIC ACID 1 MG TAB PO SCH (08:31)
[2017-11-16] MEDS: PANTOPRAZOLE 40 MG TABLET PO SCH (08:31)
--- NOTE | 2017-11-16 10:49 | P.PN ---
Subjective Progress Note Date: 11/16/17 This is a 57-year-old gentleman with history of coronary artery disease and prior bypass surgery who is demented to the hospital with symptoms of chest discomfort. He is currently at [place] going through alcohol rehab. Patient was seen in consultation by Dr. Borjas and recommended undergo stress testing today. I pressure this morning 106/60 with a heart rate in the 80s, temperature 98.6, he is 95% on room air. White blood cell count 5.4, hemoglobin 8.9, platelet count 228. Sodium 1:30, potassium 4.9, BUN 11, creatinine 0.8. Magnesium 1.6. Objective - Vital Signs Vital signs: Vital Signs Temp 98.6 F 11/16/17 02:17 Pulse 85 11/16/17 08:00 Resp 18 11/16/17 08:00 BP 105/67 11/16/17 08:00 Pulse Ox 95 11/16/17 09:46 Intake & Output 11/15/17 11/16/17 11/16/17 18:59 06:59 18:59 Intake Total 1240 0 Output Total 150 500 Balance 1090 -500 0 Weight 60 kg Intake: IV 400 Magnesium Sulfate-D5w Pmx 400 1 gm In Dextrose/Water 1 100ml.bag @ 100 mls/hr IVPB Q1H BARRETT Rx#: [id number] Oral 840 0 Output: Urine 150 500 Other: Voiding Method Toilet Toilet Toilet Urinal Urinal Urinal # Voids 2 3 - Exam PHYSICAL EXAMINATION: GENERAL: 57-year-old gentleman in no acute distress at the time of my examination HEENT: Head is atraumatic, normocephalic. Pupils equal, round. Sclera anicteric. Conjunctiva are clear. Mucous membranes of the mouth are moist. Neck is supple. There is no elevated jugular venous pressure.] bruit is heard. HEART EXAMINATION: Heart S1, S2 normal. No murmur or gallop heard. CHEST EXAMINATION: Lungs are clear to auscultation and precussion. No chest wall tenderness is noted on palpation or with deep breathing. ABDOMEN: Soft, nontender. Bowel sounds are heard. No organomegaly noted. EXTREMITIES: 2+ peripheral pulses with no evidence of peripheral edema and no calf tenderness noted. NEUROLOGIC patient is awake, alert and oriented ?-3. . - Labs CBC & Chem 7: 11/16/17 05:53 11/16/17 05:53 Labs: Abnormal Lab Results - Last 24 Hours (Table) 11/16/17 11/16/17 Range/Units 05:53 05:53 RBC 3.23 L (4.30-5.90) m/uL Hgb 8.9 L (13.0-17.5) gm/dL Hct 29.1 L (39.0-53.0) % MCHC 30.5 L (31.0-37.0) g/dL RDW 18.0 H (11.5-15.5) % Lymphocytes # (Manual) 0.54 L (1.0-4.8) k/uL Sodium 130 L (137-145) mmol/L Carbon Dioxide 19 L (22-30) mmol/L Glucose 111 H (74-99) mg/dL Assessment and Plan Plan: Assessment and plan #1 atypical chest pain, troponins negative 3. EKG shows a sinus tachycardia with no acute changes. #2 known history of coronary artery disease with prior bypass surgery #3 EtOH abuse, currently in rehab #4 hyperlipidemia #5 COPD #6 history of TIA #7 nicotine dependence Plan Patient is scheduled today to undergo stress test, stress test is negative he may be able to be discharged home from cardiology's perspective. We will await results and further recommendations will be made. DNP note has been reviewed, I agree with a documented findings and plan of care. Patient was seen and examined.
[2017-11-16] MEDS: ASPIRIN 325 MG TAB PO SCH (11:07)
[2017-11-16] MEDS: amLODIPine 5 MG TAB PO SCH (11:07)
[2017-11-16] MEDS: MAGNESIUM OXIDE 400 MG TAB PO SCH ×3 (11:07→21:29)
[2017-11-16] MEDS: METOPROLOL TARTRATE 25 MG TAB PO SCH ×2 (11:07→21:28)
[2017-11-16] MEDS: ATORVASTATIN 40 MG TAB PO SCH (11:08)
[2017-11-16] MEDS: THIAMINE 100 MG TAB PO SCH (11:08)
[2017-11-16] MEDS: MULTIVITAMINS, THERA 1 EACH TAB PO SCH (11:08)
--- NOTE | 2017-11-16 11:26 | NM ---
EXAMINATION TYPE: NM stress lexiscan cardiolite DATE OF EXAM: 11/16/2017 COMPARISON: NONE HISTORY: Chest pain TECHNIQUE: After the intravenous administration of 10.51 mCi Tc 99m Sestamibi - Cardiolite resting S PECT images acquired 45 minutes post injection. The patient received 0.4mg Lexiscan, 26.6 mCi Tc 99m Sestamibi - Stress images obtained [address] injection FINDINGS: Review of stress and rest SPECT images demonstrates small area of focal stress-induced reversible isc hemia involving the apex Gated analysis shows normal wall motion with an estimated left ventricular e jection fraction of 59 %. IMPRESSION: 1. Findings are suspicious for a small focal area of stress-induced ischemia involving the apex myoca rdium. Report called to the patient's nurse.
[2017-11-16] MEDS ORDERED: ALPRAZolam 0.25 MG TAB PO PRN (11:31)
[2017-11-16] MEDS ORDERED: ASPIRIN 325 MG TAB PO STA (11:31)
[2017-11-16] MEDS ORDERED: NITROGLYCERIN SL TABS 0.4 MG TAB SUBLINGUAL PRN (11:31)
[2017-11-16] MEDS ORDERED: ATORVASTATIN 80 MG TAB PO STA (11:31)
[2017-11-16] MEDS ORDERED: ALPRAZolam 0.5 MG TAB PO PRN (11:31)
[2017-11-16] MEDS ORDERED: SODIUM CHLORIDE 0.9% 1,000 ML in EMPTY BAG 1 BAG IV ONE (11:31)
[2017-11-16 11:58] VITALS: BMI 18.9
--- NOTE | 2017-11-16 14:01 | EST ---
EXERCISE STRESS AGE: 57 SEX: M HT: 70" WT: 125 PROTOCOL: Lexiscan Cardiolite Stress Test HEART RATE REST: 78 BLOOD PRESSURE REST: 114/80 MAXIMUM HEART RATE ACHIEVED: 103 MAXIMUM BLOOD PRESSURE: 167/85 85% MPHR: 138 100% MPHR: 162 INDICATIONS: Chest pain. CLINICAL INFORMATION: Baseline rhythm is sinus mechanism, rate is 78, normal axis and intervals, normal echocardiogram. Baseline blood pressure 140/80 mmHg. Patient received an injection of Lexiscan. Electrocardiograph monitoring revealed no evidence of diagnostic ischemic ST deviation. Cardiolite was injected per protocol. CONCLUSION: 1. Nondiagnostic electrocardiograph stress testing. 2. Nuclear images will be reported separately. MMODL / IJN: [id number] /
--- NOTE | 2017-11-16 16:46 | PN ---
PROGRESS NOTE DATE OF SERVICE: 11/16/2017 INTERVAL HISTORY: This 57-year-old gentleman who was admitted with chest pain, had abnormal stress test. Cardiology following the patient closely. No chest pain. No palpitations. No fever. PHYSICAL EXAM: Alert and oriented x3. Pulse is 85, blood pressure 106/64, respiration 17, temperature 98.4, pulse ox 94% on room air. HEENT: Conjunctivae normal. Oral mucosa moist. NECK: No jugular venous distention. No lymph node enlargement. CARDIOVASCULAR: S1 and S2 muffled. LUNGS: Breath sounds diminished at the bases. No rhonchi no crackles. ABDOMEN: Soft, nontender. EXTREMITIES: Legs no edema. NERVOUS SYSTEM: No focal deficits. LABS: At this time, WBC 5, hemoglobin is 8.9, sodium 130. ASSESSMENT: 1. Chest pain, possible unstable angina. 2. Abnormal stress test. 3. History of EtOH, at [facility] for rehab. 4. Hypomagnesemia, severe, improving. 5. Increased AST. 6. Hyponatremia, possibly hypovolemic. 7. Anemia of chronic disease. 8. History of coronary artery disease with coronary artery bypass grafting. 9. Nonprogression of R wave on EKG. 10.Chronic obstructive pulmonary disease. 11.Cerebrovascular accident/transient ischemic attack. 12.History of nicotine dependence. 13.Anemia, possibly secondary to EtOH. RECOMMENDATIONS: Continue current management and symptomatic treatment. Continue the rest of the medications. Monitor lytes closely. Cardiology consultation, possible cardiac cath. Prognosis guarded. Further recommendations to follow. MMODL / IJN: [id number] /
[2017-11-16] MEDS: traZODone HCL 50 MG TAB PO SCH (21:29)
[2017-11-16] MEDS: MELATONIN 3 MG TABLET PO SCH (22:30)
[2017-11-16] MEDS: ACETAMINOPHEN TAB 325 MG TAB PO PRN (22:32)
[2017-11-17] MEDS: NITROGLYCERIN OINT 1 INCH/GM PACKET TOPICAL SCH ×4 (01:46→23:30)
[2017-11-17] MEDS: ATORVASTATIN 40 MG TAB PO SCH (05:37)
[2017-11-17] MEDS ORDERED: ATORVASTATIN 80 MG TAB PO ONE (06:00)
[2017-11-17] MEDS ORDERED: REGADENOSON 0.4 MG/5 ML SYRINGE IV ONE (06:00)
[2017-11-17 06:31] LABS: Anion Gap 7 mmol/L; Blood Urea Nitrogen 13 mg/dL (9-20); Calcium 9.1 mg/dL (8.4-10.2); Carbon Dioxide 22 mmol/L (22-30); Chloride 102 mmol/L (98-107); Glucose 115 mg/dL (74-99); Magnesium 1.5 mg/dL (1.6-2.3); Potassium 4.9 mmol/L (3.5-5.1); Sodium 131 mmol/L (137-145)
[2017-11-17 07:06] LABS: Anisocytosis Slight; HCT 26.1 % (39.0-53.0); HGB 8.1 gm/dL (13.0-17.5); Hypochromasia Marked; MCH 27.6 pg (25.0-35.0); Mean Platelet Volume 7.5; Platelet Count 216 k/uL (150-450); RBC 2.93 m/uL (4.30-5.90); RDW 18.1 % (11.5-15.5); WBC 5.6 k/uL (3.8-10.6)
[2017-11-17] MEDS: ASPIRIN 325 MG TAB PO SCH (07:11)
[2017-11-17] MEDS: amLODIPine 5 MG TAB PO SCH (07:11)
[2017-11-17] MEDS: FOLIC ACID 1 MG TAB PO SCH (07:12)
[2017-11-17] MEDS: PANTOPRAZOLE 40 MG TABLET PO SCH (07:12)
[2017-11-17] MEDS: METOPROLOL TARTRATE 25 MG TAB PO SCH ×2 (07:12→20:34)
[2017-11-17] MEDS: MAGNESIUM OXIDE 400 MG TAB PO SCH ×3 (08:09→20:35)
[2017-11-17] MEDS: THIAMINE 100 MG TAB PO SCH (08:09)
[2017-11-17 08:10] LABS: Eosinophils # (M) 0.06 k/uL (0-0.7); Lymphocytes # (M) 0.67 k/uL (1.0-4.8); Monocytes # (M) 0.95 k/uL (0-1.0); Neutrophils # (M) 3.92 k/uL (1.3-7.7); Neutrophils % (M) 70 %; Nucleated Red Blood Cells 0 /100 WBC (0-0); Poikilocytosis (M) Present; Total Cells Counted 100
[2017-11-17] MEDS ORDERED: MIDAZOLAM 2 MG/2 ML VIAL ONE (10:02)
[2017-11-17] MEDS ORDERED: fentaNYL (PF) 50 MCG/ML 2 ML AMP ONE (10:02)
[2017-11-17] MEDS ORDERED: LIDOCAINE 1% INJ 10MG/ML (20 ML MDV) ONE (10:02)
[2017-11-17] MEDS ORDERED: IV FLUID CONTINUATION 1,000 ML IV ONE (10:09)
[2017-11-17] MEDS: MIDAZOLAM 2 MG/2 ML VIAL IV ONE ×2 (10:43→11:19)
[2017-11-17] MEDS ORDERED: LIDOCAINE 1% INJ 10MG/ML (20 ML MDV) SQ ONE (10:45)
[2017-11-17] MEDS ORDERED: diphenhydrAMINE 50 MG/ML 1 ML VIAL ONE (11:17)
[2017-11-17] MEDS ORDERED: diphenhydrAMINE 50 MG/ML 1 ML VIAL IVP ONE (11:24)
[2017-11-17] MEDS: fentaNYL (PF) 50 MCG/ML 2 ML AMP IV ONE ×2 (11:42→12:28)
[2017-11-17] MEDS ORDERED: HEPARIN SODIUM 1,000 UN/ML (10ML VL) ONE (12:19)
[2017-11-17] MEDS ORDERED: HEPARIN SODIUM 1,000 UN/ML (10ML VL) IV ONE (12:20)
[2017-11-17] MEDS ORDERED: IOPAMIDOL-370 50ML BTL INJ ONE (12:59)
[2017-11-17] MEDS ORDERED: IOPAMIDOL-370 125ML BTL INJ ONE (12:59)
[2017-11-17] MEDS ORDERED: SODIUM CHLORIDE 0.9% 1,000 ML IV SCH (13:00)
[2017-11-17] MEDS ORDERED: CLOPIDOGREL 75 MG TAB ONE (13:00)
[2017-11-17] MEDS ORDERED: CLOPIDOGREL 75 MG TAB PO ONE (13:04)
--- NOTE | 2017-11-17 13:32 | AN ---
ANGIOGRAPHY REPORT PERCUTANEOUS PERIPHERAL INTERVENTION: DATE OF SERVICE: November 17, 2017 PERFORMING PHYSICIAN: Victor M Mensah MD, global analytics head. PROCEDURE PERFORMED: Successful stenting of the proximal left subclavian artery using 8.0 mm x 19 mm Omnilink balloon expandable stent with excellent angiographic results and reduction of stenosis from 80% to 0%. INDICATION: This is a pleasant 57-year-old gentleman with known history of coronary artery disease and prior coronary artery bypass grafting including HERRERA to LAD who presented to the hospital with chest discomfort and underwent myocardial perfusion imaging stress test and that revealed apical ischemia. He underwent heart catheterization by Dr. Leach and that revealed severe disease involving the proximal left subclavian with heavily calcified eccentric lesion. The decision was made towards percutaneous peripheral intervention of the left subclavian. APPROACH: Right common femoral artery. COMPLICATION: None. LEVEL OF SEDATION: Moderate with sedation length of minutes. PROCEDURE DESCRIPTION: Please refer to the diagnostic heart catheterization that was performed by Dr. Leach earlier today. Anticoagulation was initiated using heparin and the patient was given a weight-based heparin with 8000 units. Subsequently I did select the left subclavian using JR4 catheter. I did wire it using an 0.035 stiff Glidewire. I attempted measuring the gradient across the left subclavian by trying to cross the left subclavian lesion using 0.035 glide catheter and 0.035 CXI catheter, but both cath catheters would not cross the proximal left subclavian because the lesion was tighter than what it looks. At that point, I decided to go ahead and stent the lesion. At that point, I had tried advancing a 6 mm 0.035 balloon over the 0.035 stiff Glidewire and at that point I was unable, the balloon will not cross the lesion. At that point, I decided to wire the lesion using 0.018 wire and try to balloon it using 0.018 balloon. So I did wire the lesion using 0.018 V-18 wire and then I ballooned it using 6 mm x mm 0.018 balloon which was inflated under 12 atmospheres for 20 seconds. After that I was able to advance an 8.0 mm x 19 mm Omnilink balloon expandable stent over the 0.018 V-18 wire where the stent was positioned under fluoroscopy guidance and deployed under its nominal pressure for one minute. During that inflation, the patient experiencing chest discomfort. The subsequent angiogram showed excellent angiographic results and the procedure was completed without any complication. Please note that I did exchange my 11 cm 6-Iraqi sheath into 90 cm 6-Iraqi Raabe sheath over 0.035 advantage wire and the tip of the sheath was positioned in the left subclavian in the beginning of the case. After that, I did exchange my long sheath into short sheath using 0.035 glidewire. The procedure was completed without any complication. POSTPROCEDURE MANAGEMENT: 1. Dual antiplatelet therapy. 2. Risk factors modifications. 3. Follow up with the patient. MMODL / IJN: [id number] /
--- NOTE | 2017-11-17 14:23 | P.PN ---
Subjective 57-year-old gentleman underwent the stress test which was positive because of which patient underwent cardiac catheterization which showed significant atherosclerotic coronary occlusive disease in multiple of his coronary vasculature is please refer to the cardiac cath report. Along with that patient also had subclavian stenosis cardiology is recommending stenting of the stenosis and no further intervention for the blockages in his previous bypass grafts. Patient is hyponatremic probably hypovolemic hyponatremia patient is receiving IV fluids and recheck basic metabolic profile tomorrow. Patient does have some tremors which is his baseline as per the patient Constitutional: Denied any fatigue denied any fever. Cardio vascular: denied any chest pain, palpitations Gastrointestinal denied any nausea vomiting Pulmonary: Denied any shortness of breath cough Neurologic denied any new focal deficits Objective - Vital Signs Vital signs: Vital Signs Temp 97 F L 11/17/17 13:30 Pulse 78 11/17/17 14:00 Resp 18 11/17/17 14:00 BP 142/66 11/17/17 14:00 Pulse Ox 93 L 11/17/17 14:00 Intake & Output 11/16/17 11/17/17 11/17/17 18:59 06:59 18:59 Intake Total 180 900 150 Output Total 300 Balance 180 900 -150 Weight 60 kg 60.2 kg Intake: IV 150 Intake, IV Titration 660 Amount Sodium Chloride 0.9% 1, 660 000 ml In Empty Bag 1 bag @ 1 ML/KG/HR 60 mls/hr IV .[id number] ONE Rx#: [id number] Oral 180 240 0 Output: Urine 300 Other: Voiding Method Toilet Toilet Urinal Urinal # Voids 3 # Bowel Movements 0 - Exam PHYSICAL EXAMINATION: GENERAL: The patient is alert and oriented x3, not in any acute distress. Well developed, well nourished. HEENT: Pupils are round and equally reacting to light. EOMI. No scleral icterus. No conjunctival pallor. Normocephalic, atraumatic. No pharyngeal erythema. No thyromegaly. CARDIOVASCULAR: S1 and S2 present. No murmurs, rubs, or gallops. PULMONARY: Chest is clear to auscultation, no wheezing or crackles. ABDOMEN: Soft, nontender, nondistended, normoactive bowel sounds. No palpable organomegaly. MUSCULOSKELETAL: No joint swelling or deformity. EXTREMITIES: No cyanosis, clubbing, or pedal edema. NEUROLOGICAL: Gross neurological examination did not reveal any focal deficits. SKIN: No rashes. - Labs CBC & Chem 7: 11/17/17 06:03 11/17/17 06:03 Labs: Abnormal Lab Results - Last 24 Hours (Table) 11/17/17 11/17/17 Range/Units 06:03 06:03 RBC 2.93 L (4.30-5.90) m/uL Hgb 8.1 L (13.0-17.5) gm/dL Hct 26.1 L (39.0-53.0) % RDW 18.1 H (11.5-15.5) % Lymphocytes # (Manual) 0.67 L (1.0-4.8) k/uL Sodium 131 L (137-145) mmol/L Glucose 115 H (74-99) mg/dL Magnesium 1.5 L (1.6-2.3) mg/dL Assessment and Plan Plan: -Chest pain with positive stress test: Cardiac catheterization findings as mentioned above and cardiology recommendations as mentioned above -Known history of coronary artery disease with CABG in the past -Alcohol abuse presently in alcohol rehabilitation program next and--B -COPD without any acute exacerbation -History of TIA in the past nicotine dependence. -Hypovolemic hyponatremia: Patient is on IV fluids repeat serum sodium tomorrow.
--- NOTE | 2017-11-17 15:54 | IR ---
Fluoroscopy HISTORY: Chest pain 20 minutes fluoroscopy time supplied to the referring clinician. 1108 intraoperative C-arm images do cument the procedure. See dictated report from cardiology.
[2017-11-17] MEDS: MULTIVITAMINS, THERA 1 EACH TAB PO SCH (16:00)
[2017-11-17] MEDS ORDERED: ATROPINE SULFATE 0.1 MG/ML 10ML SYRINGE ONE (16:22)
[2017-11-17] MEDS: MELATONIN 3 MG TABLET PO SCH (20:33)
[2017-11-17] MEDS: traZODone HCL 50 MG TAB PO SCH (20:34)
[2017-11-17] MEDS: ACETAMINOPHEN TAB 325 MG TAB PO PRN (20:36)
[2017-11-18] MEDS: ATORVASTATIN 40 MG TAB PO SCH (06:30)
[2017-11-18] MEDS: FOLIC ACID 1 MG TAB PO SCH (06:30)
[2017-11-18] MEDS: PANTOPRAZOLE 40 MG TABLET PO SCH (06:30)
[2017-11-18 06:50] LABS: Anisocytosis Slight; HCT 25.6 % (39.0-53.0); HGB 7.8 gm/dL (13.0-17.5); Hypochromasia Marked; MCH 27.8 pg (25.0-35.0); MCHC 30.6 g/dL (31.0-37.0); MCV 90.9 fL (80.0-100.0); Mean Platelet Volume 7.4; Platelet Count 234 k/uL (150-450); RBC 2.81 m/uL (4.30-5.90); WBC 6.9 k/uL (3.8-10.6)
[2017-11-18 06:59] LABS: Anion Gap 7 mmol/L; Blood Urea Nitrogen 12 mg/dL (9-20); Calcium 8.9 mg/dL (8.4-10.2); Carbon Dioxide 20 mmol/L (22-30); Chloride 103 mmol/L (98-107); Glucose 102 mg/dL (74-99); Magnesium 1.4 mg/dL (1.6-2.3); Potassium 4.4 mmol/L (3.5-5.1); Sodium 130 mmol/L (137-145)
[2017-11-18 08:49] LABS: Basophils # (M) 0.07 k/uL (0-0.2); Lymphocytes # (M) 0.48 k/uL (1.0-4.8); Monocytes # (M) 0.48 k/uL (0-1.0); Neutrophils # (M) 5.87 k/uL (1.3-7.7); Neutrophils % (M) 85 %; Nucleated Red Blood Cells 0 /100 WBC (0-0); Total Cells Counted 100
[2017-11-18 08:50] LABS: Poikilocytosis (M) Present
[2017-11-18] MEDS: NITROGLYCERIN OINT 1 INCH/GM PACKET TOPICAL SCH (09:14)
[2017-11-18] MEDS: MAGNESIUM OXIDE 400 MG TAB PO SCH ×3 (09:15→20:40)
[2017-11-18] MEDS: amLODIPine 5 MG TAB PO SCH (09:15)
[2017-11-18] MEDS: CLOPIDOGREL 75 MG TAB PO SCH (09:15)
[2017-11-18] MEDS: ASPIRIN 325 MG TAB PO SCH (09:15)
[2017-11-18] MEDS: METOPROLOL TARTRATE 25 MG TAB PO SCH ×2 (09:16→20:40)
[2017-11-18] MEDS: THIAMINE 100 MG TAB PO SCH (09:16)
[2017-11-18] MEDS: MULTIVITAMINS, THERA 1 EACH TAB PO SCH (09:16)
[2017-11-18] MEDS: MAGNESIUM SULFATE-D5W PMX 1 GM in DEXTROSE/WATER 1 100ML.BAG IVPB SCH ×2 (11:00→12:10)
[2017-11-18] MEDS ORDERED: MAGNESIUM SULFATE-D5W PMX 1 GM in DEXTROSE/WATER 1 100ML.BAG IVPB ONE (11:45)
--- NOTE | 2017-11-18 11:57 | P.PN ---
Subjective Progress Note Date: 11/18/17 This is a 57-year-old gentleman with history of coronary artery disease and prior bypass surgery who is demented to the hospital with symptoms of chest discomfort. He is currently at [place] going through alcohol rehab. Patient was seen in consultation by Dr. Borjas and recommended undergo stress testing today. I pressure this morning 106/60 with a heart rate in the 80s, temperature 98.6, he is 95% on room air. White blood cell count 5.4, hemoglobin 8.9, platelet count 228. Sodium 1:30, potassium 4.9, BUN 11, creatinine 0.8. Magnesium 1.6. 11/18/2017 Patient underwent subclavian stent placement yesterday. He was seen and examined this morning, denied any chest pain or difficulty in breathing. He was complaining of some discomfort in the right groin. There was evidence of a mild hematoma, positive bruit, in a patient with known PAD. I have requested an ultrasound of the groin to confirm that there is no pseudoaneurysm. If this looks good patient may be able to be discharged home. Follow-up appointment will be made in the office with Dr. Borjas post discharge. Blood pressure this morning 126/60 with a heart rate in the 80s. White blood cell count 6.9, hemoglobin 7.8, platelet count 234. Sodium 1:30, potassium 4.4, BUN 12, creatinine 0.8, magnesium 1.4. Objective - Vital Signs Vital signs: Vital Signs Temp 98.3 F 11/18/17 04:00 Pulse 80 11/18/17 05:06 Resp 16 11/18/17 04:00 BP 126/63 11/18/17 04:00 Pulse Ox 97 11/18/17 04:00 Intake & Output 11/17/17 11/18/17 11/18/17 18:59 06:59 18:59 Intake Total 150 180 Output Total 600 200 Balance -450 -200 180 Weight 59.3 kg Intake: IV 150 Oral 0 180 Output: Urine 600 200 Other: Voiding Method Toilet Urinal # Voids 3 # Bowel Movements 0 1 - Exam PHYSICAL EXAMINATION: GENERAL: 57-year-old gentleman in no acute distress at the time of my examination HEENT: Head is atraumatic, normocephalic. Pupils equal, round. Sclera anicteric. Conjunctiva are clear. Mucous membranes of the mouth are moist. Neck is supple. There is no elevated jugular venous pressure.] bruit is heard. HEART EXAMINATION: Heart S1, S2 normal. No murmur or gallop heard. CHEST EXAMINATION: Lungs are clear to auscultation and precussion. No chest wall tenderness is noted on palpation or with deep breathing. ABDOMEN: Soft, nontender. Bowel sounds are heard. No organomegaly noted. Pataieant has significant ecchymosis in his lower back and buttocks area around to the left thigh from his fall. EXTREMITIES:1+ peripheral pulses with no evidence of peripheral edema and no calf tenderness noted. Right groin small hematoma, positive bruit positive ecchymosis. NEUROLOGIC patient is awake, alert and oriented ?-3. . - Labs CBC & Chem 7: 11/18/17 06:30 11/18/17 06:30 Labs: Abnormal Lab Results - Last 24 Hours (Table) 11/18/17 11/18/17 Range/Units 06:30 06:30 RBC 2.81 L (4.30-5.90) m/uL Hgb 7.8 L (13.0-17.5) gm/dL Hct 25.6 L (39.0-53.0) % MCHC 30.6 L (31.0-37.0) g/dL RDW 18.0 H (11.5-15.5) % Lymphocytes # (Manual) 0.48 L (1.0-4.8) k/uL Sodium 130 L (137-145) mmol/L Carbon Dioxide 20 L (22-30) mmol/L Glucose 102 H (74-99) mg/dL Magnesium 1.4 L (1.6-2.3) mg/dL Assessment and Plan Plan: Assessment and plan #1 atypical chest pain, troponins negative 3. EKG shows a sinus tachycardia with no acute changes. Positive stress test, status post cardiac catheterization with subsequent stenting of the subclavian artery. #2 known history of coronary artery disease with prior bypass surgery #3 EtOH abuse, currently in rehab #4 hyperlipidemia #5 COPD #6 history of TIA #7 nicotine dependence Plan Ultrasound of the groin is benign ordered today to rule out pseudoaneurysm, if negative, patient may be able to be discharged home on dual antiplatelet therapy with a follow-up appointment to see Dr. Leach in the office post discharge. DNP note has been reviewed, I agree with a documented findings and plan of care. Patient was seen and examined.
--- NOTE | 2017-11-18 12:38 | US ---
EXAMINATION TYPE: US lower ext pseudo artery RT DATE OF EXAM: 11/18/2017 COMPARISON: NONE CLINICAL HISTORY: r/o pseudoaneurysm. Patient is post right groin cardiac catheterization for subclav herb artery stent; prior iliac artery bypass grafts per floor RN and patient EXAM PERFORMED: Grayscale and color Doppler duplex imaging performed of the groin, post cardiac codi ter to assess for pseudoaneurysm. 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 Color and Waveform Doppler performed to assess for the presence of pseudoaneurysm; Is there ultrasound evidence of a pseudoaneurysm: no Is there evidence of AV shunting: no Is there a fluid collection present: no Compressibility is noted of Deep Veins assessed at right groin. IMPRESSION: Findings felt likely to be related to patient's prior surgery, correlate with surgical procedure. CTA could be performed in the right groin for better evaluation. Question aneurysmal dilation at the lev el of the patient's anastomosis.
--- NOTE | 2017-11-18 12:56 | P.DS ---
Providers Date of admission: 11/15/17 10:14 Attending physician: Niki Hernadez Consults: 11/13/17 22:13 Consult Physician Urgent Consulting Provider: Alberta Coto Consult Reason/Comments: cp Do you want consulting provider notified?: Yes Primary care physician: Stated None Hospital Course: 57-year-old gentleman underwent the stress test which was positive because of which patient underwent cardiac catheterization which showed significant atherosclerotic coronary occlusive disease in multiple of his coronary vasculature is please refer to the cardiac cath report. Along with that patient also had subclavian stenosis cardiology is recommending stenting of the stenosis and no further intervention for the blockages in his previous bypass grafts. Patient is hyponatremic probably hypovolemic hyponatremia patient is receiving IV fluids and recheck basic metabolic profile tomorrow. Patient does have some tremors which is his baseline as per the patient. 11/18/2017 Patient underwent stenting of left proximal subclavian. Patient is clinically doing well will not discharged today. There is a concern about hematoma in the groin area ultrasound is being obtained if that is okay and if cardiology clears patient will be discharged today PHYSICAL EXAMINATION: GENERAL: The patient is alert and oriented x3, not in any acute distress. Well developed, well nourished. HEENT: Pupils are round and equally reacting to light. EOMI. No scleral icterus. No conjunctival pallor. Normocephalic, atraumatic. No pharyngeal erythema. No thyromegaly. CARDIOVASCULAR: S1 and S2 present. No murmurs, rubs, or gallops. PULMONARY: Chest is clear to auscultation, no wheezing or crackles. ABDOMEN: Soft, nontender, nondistended, normoactive bowel sounds. No palpable organomegaly. MUSCULOSKELETAL: No joint swelling or deformity. EXTREMITIES: No cyanosis, clubbing, or pedal edema. NEUROLOGICAL: Gross neurological examination did not reveal any focal deficits. SKIN: No rashes. Assessment and Plan Plan: -Chest pain with positive stress test: Cardiac catheterization findings as mentioned above , patient underwent stenting of left proximal subclavian -Alcohol abuse presently in alcohol rehabilitation program -COPD without any acute exacerbation -History of TIA in the past nicotine dependence. 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 I believe the offending drugs being Tigan, Benadryl, these medications are being discontinued Patient Condition at Discharge: Undetermined Plan - Discharge Summary New Discharge Prescriptions: New amLODIPine [Norvasc] 5 mg PO DAILY #30 tab Clopidogrel [Plavix] 75 mg PO DAILY #30 tab Magnesium Oxide [Mag-Ox] 400 mg PO TID #90 tab Metoprolol Tartrate [Lopressor] 25 mg PO BID #60 tab Nitroglycerin Sl Tabs [Nitrostat] 0.4 mg SUBLINGUAL Q5M PRN #30 tab PRN Reason: Chest Pain Aspirin 81 mg PO DAILY #30 chewable Continue traZODone HCL 150 mg PO HS Chlorpheniramine Maleate [Chlor-Trimeton] 4 mg PO Q4H PRN PRN Reason: Anxiety/Allergies Tigan 200mg Injection 200 mg IM Q6H PRN PRN Reason: Nausea Ibuprofen [Motrin] 600 mg PO Q6H PRN PRN Reason: Fever And/ Or Pain Acetaminophen Tab [Tylenol] 650 mg PO Q4H PRN PRN Reason: Fever And/ Or Pain Thiamine [Vitamin B-1] 100 mg PO DAILY Multivitamins, Thera [Multivitamin (formulary)] 1 tab PO DAILY Folic Acid 1 mg PO DAILY@629 Atorvastatin [Lipitor] 40 mg PO DAILY@629 Pantoprazole Sodium [Protonix] 40 mg PO DAILY@629 Discontinued Trimethobenzamide [Tigan] 300 mg PO Q6H PRN PRN Reason: Nausea Ondansetron [Zofran] 4 mg IM Q6H PRN PRN Reason: Nausea Ondansetron HCl [Zofran] 8 mg PO Q6H PRN PRN Reason: Nausea Metoprolol Succinate (ER) [Toprol Xl] 12.5 mg PO DAILY Discharge Medication List Acetaminophen Tab [Tylenol] 650 mg PO Q4H PRN 11/13/17 [History] Atorvastatin [Lipitor] 40 mg PO DAILY@62911/13/17 [History] Chlorpheniramine Maleate [Chlor-Trimeton] 4 mg PO Q4H PRN 11/13/17 [History] Folic Acid 1 mg PO DAILY@62911/13/17 [History] Ibuprofen [Motrin] 600 mg PO Q6H PRN 11/13/17 [History] Multivitamins, Thera [Multivitamin (formulary)] 1 tab PO DAILY 11/13/17 [History ] Pantoprazole Sodium [Protonix] 40 mg PO DAILY@0630 11/13/17 [History] Thiamine [Vitamin B-1] 100 mg PO DAILY 11/13/17 [History] Tigan 200mg Injection 200 mg IM Q6H PRN 11/13/17 [History] traZODone HCL 150 mg PO HS 11/13/17 [History] Aspirin 81 mg PO DAILY #30 chewable 11/18/17 [Rx] Clopidogrel [Plavix] 75 mg PO DAILY #30 tab 11/18/17 [Rx] Magnesium Oxide [Mag-Ox] 400 mg PO TID #90 tab 11/18/17 [Rx] Metoprolol Tartrate [Lopressor] 25 mg PO BID #60 tab 11/18/17 [Rx] Nitroglycerin Sl Tabs [Nitrostat] 0.4 mg SUBLINGUAL Q5M PRN #30 tab 11/18/17 [Rx ] amLODIPine [Norvasc] 5 mg PO DAILY #30 tab 11/18/17 [Rx] Follow up Appointment(s)/Referral(s): None,Stated [Primary Care Provider] - 3 Days (Please set up an appointment with your primary care doctor) Ricardo Leach MD [STAFF PHYSICIAN] - 11/25/17 3:00 pm (Thursday) Patient Instructions/Handouts: *Surgery [facility] - After Heart Catheterization - Policyholder Information Clerk Instructions, Left Heart Catheterization (DC) Discharge Disposition: OTHER INSTITUTION NOT DEFINED
[2017-11-18] MEDS ORDERED: RX INFO: IV CONTRAST WAS GIVEN 1 EACH MISC MISCELLANE PRN (14:39)
--- NOTE | 2017-11-18 16:05 | CT ---
EXAMINATION TYPE: CT angio abd aorta w/Runoff DATE OF EXAM: 11/18/2017 COMPARISON: None INDICATION: right groin aneurysm DLP: 1040 mGycm, Automated exposure control for dose reduction was used. CONTRAST: 100 mL of Isovue 370. Study performed without Oral Contrast TECHNIQUE: Axial images were obtained from above the diaphragm to the pubic rami in the axial plane a t 5 mm thick sections. Reconstructed images are reviewed on the computer in the coronal plane. FINDINGS: Limited CT sections are obtained the lung bases. The lung bases are clear. CT ABDOMEN: There is some limitation due to the phase of contrast. Liver: Normal Spleen: Normal Pancreas: Normal Adrenal glands: The adrenal glands are normal. Gallbladder: Gallstone is present. Kidneys: Right kidney is atrophic. Contrast is within the cortex. No masses are evident. No hydroneph rosis is present. No cysts are present. Aorta: Vascular calcification is within the aorta. There is an aortic bypass the infrarenal region. Bypass extends through the iliac regions with 3 anastomosis at the common femoral regions bilaterally . Superficial femoral arteries are patent. Profunda femoris vessels appear patent proximally. Poplite al arteries are patent bilaterally. There is some narrowing from vascular calcification in the left p opliteal artery. More distally within the right popliteal artery is some moderate stenosis. There is some focal narrowing of the distal right popliteal artery. Trifurcation vessels are patent. Right lower extremity: Anterior tibial artery is patent to the level of the ankle. Peroneal artery is patent to the level ankle on the right. Posterior tibial artery is somewhat more difficult to visual ize but appears to be patent at the level of the ankle. Left lower extremity: There are some areas of severe narrowing within the left posterior tibial arter y. This appears patent to the level of the distal foreleg. Peroneal and anterior tibial arteries are patent to the level of the ankle. There may be some aneurysmal dilatation at the distal anastomosis of the aorto femoral bypass bilater ally. Three-D reconstructed images are reviewed. Inferior vena cava: Normal. CT PELVIS: Loops of bowel within the abdomen and pelvis are normal. Studies without oral contrast limiting t he evaluation. Appendix: Normal as visualized Urinary bladder: Normal. Genitourinary structures: Prostate is slight prominence. Osseous structures: No suspicious lytic or sclerotic lesions. IMPRESSIONS: 1. There is prominence of the anastomosis of the aortofemoral bypass junction with the [place] common femoral arteries. On the right this measures 2.1 x 2.5 cm. On the left this measures 2.6 x 2.1 cm. 2. There are some areas of stenosis discussed above. This may be severe at the distal right popliteal artery and within the distal left superficial femoral artery and proximal popliteal artery. Trifurca tion vessels are patent although all vessels on each side do not reach the level of the ankle as disc ussed above.
[2017-11-18 16:27] VITALS: RESP 18
[2017-11-18] MEDS: traZODone HCL 50 MG TAB PO SCH (20:40)
[2017-11-18] MEDS: MELATONIN 3 MG TABLET PO SCH (20:41)
[2017-11-19] MEDS: FOLIC ACID 1 MG TAB PO SCH (06:21)
[2017-11-19] MEDS: PANTOPRAZOLE 40 MG TABLET PO SCH (06:21)
[2017-11-19] MEDS: ATORVASTATIN 40 MG TAB PO SCH (06:21)
[2017-11-19] MEDS: amLODIPine 5 MG TAB PO SCH (08:40)
[2017-11-19] MEDS: CLOPIDOGREL 75 MG TAB PO SCH (08:41)
[2017-11-19] MEDS: METOPROLOL TARTRATE 25 MG TAB PO SCH (08:41)
[2017-11-19] MEDS: ASPIRIN 325 MG TAB PO SCH (08:41)
[2017-11-19] MEDS: MAGNESIUM OXIDE 400 MG TAB PO SCH ×2 (08:41→17:25)
[2017-11-19] MEDS: MULTIVITAMINS, THERA 1 EACH TAB PO SCH (08:41)
[2017-11-19] MEDS: THIAMINE 100 MG TAB PO SCH (08:42)
--- NOTE | 2017-11-19 11:45 | P.PN ---
Subjective Progress Note Date: 11/19/17 This is a 57-year-old gentleman with history of coronary artery disease and prior bypass surgery who is demented to the hospital with symptoms of chest discomfort. He is currently at [facility] going through alcohol rehab. Patient was seen in consultation by Dr. Borjas and recommended undergo stress testing today. I pressure this morning 106/60 with a heart rate in the 80s, temperature 98.6, he is 95% on room air. White blood cell count 5.4, hemoglobin 8.9, platelet count 228. Sodium 1:30, potassium 4.9, BUN 11, creatinine 0.8. Magnesium 1.6. 11/18/2017 Patient underwent subclavian stent placement yesterday. He was seen and examined this morning, denied any chest pain or difficulty in breathing. He was complaining of some discomfort in the right groin. There was evidence of a mild hematoma, positive bruit, in a patient with known PAD. I have requested an ultrasound of the groin to confirm that there is no pseudoaneurysm. If this looks good patient may be able to be discharged home. Follow-up appointment will be made in the office with Dr. Borjas post discharge. Blood pressure this morning 126/60 with a heart rate in the 80s. White blood cell count 6.9, hemoglobin 7.8, platelet count 234. Sodium 1:30, potassium 4.4, BUN 12, creatinine 0.8, magnesium 1.4. 11/19/2017 Patient was seen and examined this morning, overall feeling well. Groin is much less tender today. Yesterday patient did undergo an ultrasound of the right groin to rule out pseudoaneurysm. Ultrasound showed findings which felt likely to be related to patient's prior surgery, correlation with surgical procedure. CTA was recommended for better evaluation. CTA showed prominence of the anastomosis of the aortofemoral bypass junction with the [place] common femoral arteries. There are some areas of stenosis. We will get Dr. Mathew to come and evaluate the patient, once cleared by him he should be able to be discharged home today. Objective - Vital Signs Vital signs: Vital Signs Temp 99.5 F 11/19/17 05:00 Pulse 94 11/19/17 03:10 Resp 18 11/19/17 03:10 BP 125/63 11/19/17 03:10 Pulse Ox 94 L 11/19/17 03:10 Intake & Output 11/18/17 11/19/17 11/19/17 18:59 06:59 18:59 Intake Total 360 600 Output Total 600 Balance -240 600 Weight 59.8 kg Intake: Oral 360 600 Output: Urine 600 Other: Voiding Method Toilet Toilet Urinal Urinal # Voids 2 - Exam PHYSICAL EXAMINATION: GENERAL: 57-year-old gentleman in no acute distress at the time of my examination HEENT: Head is atraumatic, normocephalic. Pupils equal, round. Sclera anicteric. Conjunctiva are clear. Mucous membranes of the mouth are moist. Neck is supple. There is no elevated jugular venous pressure.] bruit is heard. HEART EXAMINATION: Heart S1, S2 normal. No murmur or gallop heard. CHEST EXAMINATION: Lungs are clear to auscultation and precussion. No chest wall tenderness is noted on palpation or with deep breathing. ABDOMEN: Soft, nontender. Bowel sounds are heard. No organomegaly noted. Pataieant has significant ecchymosis in his lower back and buttocks area around to the left thigh from his fall. EXTREMITIES:1+ peripheral pulses with no evidence of peripheral edema and no calf tenderness noted. Right groin small hematoma, positive bruit positive ecchymosis. NEUROLOGIC patient is awake, alert and oriented ?-3. . - Labs CBC & Chem 7: 11/18/17 06:30 11/18/17 06:30 Assessment and Plan Plan: Assessment and plan #1 atypical chest pain, troponins negative 3. EKG shows a sinus tachycardia with no acute changes. Positive stress test, status post cardiac catheterization with subsequent stenting of the subclavian artery. #2 known history of coronary artery disease with prior bypass surgery #3 EtOH abuse, currently in rehab #4 hyperlipidemia #5 COPD #6 history of TIA #7 nicotine dependence Plan Patient will be seen and evaluated today by Dr. Mathew, if cleared by him he may be able to be discharged, we will make him a follow-up appointment in the office post discharge. DNP note has been reviewed, I agree with a documented findings and plan of care. Patient was seen and examined.
[2017-11-19] MEDS ORDERED: PANTOPRAZOLE 40 MG/10 ML VIAL IVP ONE (14:18)
[2017-11-19 15:48] VITALS: TEMP 96.8
--- NOTE | 2017-11-19 16:09 | P.PN ---
Subjective Progress Note Date: 11/19/17 Progress note being dictated for Dr. Barakat. Interval history:57-year-old gentleman underwent the stress test which was positive because of which patient underwent cardiac catheterization which showed significant atherosclerotic coronary occlusive disease in multiple of his coronary vasculature is please refer to the cardiac cath report. Along with that patient also had subclavian stenosis cardiology is recommending stenting of the stenosis and no further intervention for the blockages in his previous bypass grafts. Patient is hyponatremic probably hypovolemic hyponatremia patient is receiving IV fluids and recheck basic metabolic profile tomorrow. Patient does have some tremors which is his baseline as per the patient. 11/18/2017 Patient underwent stenting of left proximal subclavian. Patient is clinically doing well will not discharged today. There is a concern about hematoma in the groin area ultrasound is being obtained if that is okay and if cardiology clears patient will be discharged today 11/19/2017 mild hematoma, groin site with ultrasound reporting no pseudoaneurysm , likely related to patient's prior surgery with questionable aneurysmal dilation at the level of the anastomosis. CTA performed reported prominence of the anastomosis of the aortofemoral bypass junction with the [place] common femoral arteries, on the right measuring 2.1 x 2.5 cm, on the left measuring 2.6 x 2.1 cm, with some areas of stenosis. Vascular surgery consulted with recommendations pending. Sodium 130. Complains of nausea, mild emesis with no diet intake today. T-max 99.5. Objective - Vital Signs Vital signs: Vital Signs Temp 96.8 F L 11/19/17 08:00 Pulse 97 11/19/17 08:00 Resp 18 11/19/17 08:00 BP 97/54 11/19/17 08:00 Pulse Ox 95 11/19/17 08:00 Intake & Output 11/18/17 11/19/17 11/19/17 18:59 06:59 18:59 Intake Total 360 840 Output Total 600 600 Balance -240 240 Weight 59.8 kg 59.8 kg Intake: Oral 360 840 Output: Urine 600 600 Other: Voiding Method Toilet Toilet Toilet Urinal Urinal Diaper Incontinent # Voids 2 - Exam GENERAL: The patient is alert and oriented x3, not in any acute distress. HEENT: Pupils are round and equally reacting to light. EOMI. No scleral icterus. No conjunctival pallor. Normocephalic, atraumatic. CARDIOVASCULAR: S1 and S2 present. No murmurs, rubs, or gallops. PULMONARY: Chest is clear to auscultation, no wheezing or crackles. ABDOMEN: Soft, nontender, nondistended, normoactive bowel sounds. No palpable organomegaly. MUSCULOSKELETAL: No joint swelling or deformity. EXTREMITIES: No cyanosis, clubbing, or pedal edema. NEUROLOGICAL: Gross neurological examination did not reveal any focal deficits. SKIN: No rashes. - Labs CBC & Chem 7: 11/18/17 06:30 11/18/17 06:30 Assessment and Plan Assessment: -Chest pain with positive stress test: Cardiac catheterization findings as mentioned above , patient underwent stenting of left proximal subclavian -Alcohol abuse presently in alcohol rehabilitation program -COPD without any acute exacerbation -History of TIA in the past nicotine dependence. 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 Plan: Continue on current medication regime ,monitoring and symptomatic treatment. Vascular surgery evaluation pending regarding CTA findings. Maintain PPI. Close monitoring of electrolytes with repeat labs ordered for a.m.Discharge planning in progress. The impression and plan of care has been dictated as directed. : I performed a history and examination of this patient, discussed the same with the dictator. I agree with the dictator's note ,documented as a scribe. Any additional findings or plans will be noted.
--- NOTE | 2017-11-19 16:43 | CONS ---
DATE OF CONSULTATION: 11/19/2017 This is a 57-year-old gentleman who had a left subclavian artery and stent placed. Patient came with a chest pain and on angiography, found to have a left subclavian atherosclerosis occlusive disease. The patient went for balloon angioplasty and stent through the right femoral approach. This patient had bilateral leg bypass done at [facility] and the patient had an ultrasound. There was concern about pseudoaneurysm which showed no evidence of pseudoaneurysm and had CT angiography which showed some infrapopliteal disease. PHYSICAL EXAMINATION: Patient is lying comfortably in bed. NECK: Supple. Trachea central. CHEST: Clear to auscultation. ABDOMEN: Soft. Femorals are palpable bilateral. There is some ecchymosis noted on the right groin area. CT scan reviewed. There is some popliteal and infrapopliteal occlusive disease. At this point, patient is stable from a vascular point of view. The patient is going home and follow up in my office in 3 weeks. MMODL / IJN: [id number] / TRIP
[2017-11-19 17:39] VITALS: BP 154/88; PULSE 96
[2017-11-19] MEDS ORDERED: PANTOPRAZOLE 40 MG/10 ML VIAL IVP SCH (21:00)
[2017-11-20] MEDS ORDERED: ASPIRIN 81 MG PO SCH (09:00)
--- NOTE | 2017-12-10 14:00 | CC ---
CARDIAC CATHETERIZATION REPORT DATE OF PROCEDURE: 11/17/2017 INDICATION: Unstable angina. PROCEDURE NOTE: After obtaining informed consent, left heart catheterization, coronary angiogram, selective injection of the bypass grafts is performed via the right femoral artery using standard Renata catheters. Patient tolerated the procedure well without any obvious immediate complications. Patient received moderate conscious sedation. Total sedation time was 27 minutes. FINDINGS: 1. HEMODYNAMICS: Left ventricular end-diastolic pressure is 16 mm. There is no significant gradient across the aortic valve. 2. LEFT VENTRICULOGRAM: Left ventriculogram is not performed. 3. ANGIOGRAPHIC DATA: 4. EMMONAK CORONARIES: 5. Left main coronary artery is a normal-sized vessel and is free of stenosis. Divides into left anterior descending coronary artery and circumflex coronary artery. LAD shows a 90% stenosis in its proximal part, circumflex coronary artery shows a 90% stenosis in the OM branch, also has a 90% stenosis. Right coronary artery is completely occluded in the proximal part. Selective injection of the bypass grafts, HERRERA to LAD appears patent. There is an area of narrowing within the subclavian artery at its origin, which makes it difficult to pass the catheter into the HERRERA, but is the subselective images show that the HERRERA is patent. Venous graft to right coronary artery appears patent. Proximal and distal anastomotic sites are free of stenosis. Venous graft to diagonal is occluded. 1. Venous graft to OM is occluded. CONCLUSION: 1. [place] 3-vessel coronary artery disease. 2. Patent HERRERA to LAD. 3. Patent venous graft to RCA. 4. Occluded venous graft to diagonal. 5. Occluded venous graft to OM. 6. Patient has subclavian stenosis which could be contributing to his symptoms. Patient will undergo subclavian angiogram and if necessary, subclavian stent. MMODL / IJN: [id number] /
== END 2017-11-19 17:51 | disposition short-term general hospital (02) | DRG 253 ==
LOC: EC 18:38 → 3SUR 22:13 → OBSVTOIN 11-15 10:14 → 6SEL 11-15 11:15
PROVIDERS: ADMIT Hospitalist; ATTEND Hospitalist
PROC: B2131ZZ Fluoroscopy of Multiple Coronary Artery Bypass Grafts using Low Osmolar Contrast (ICD-10-PCS; 2017-11-17)
PROC: B2111ZZ Fluoroscopy of Multiple Coronary Arteries using Low Osmolar Contrast (ICD-10-PCS; 2017-11-17)
PROC: 4A023N7 Measurement of Cardiac Sampling and Pressure, Left Heart, Percutaneous Approach (ICD-10-PCS; principal; 2017-11-17 10:05)
PROC: 03743DZ Dilation of Left Subclavian Artery with Intraluminal Device, Percutaneous Approach (ICD-10-PCS; 2017-11-17 10:05)
DX: I70.8 Atherosclerosis of other arteries (principal); I25.810 Atherosclerosis of coronary artery bypass graft(s) without angina pectoris; E22.2 Syndrome of inappropriate secretion of antidiuretic hormone; F10.239 Alcohol dependence with withdrawal, unspecified; Z95.1 Presence of aortocoronary bypass graft; D63.8 Anemia in other chronic diseases classified elsewhere; E78.5 Hyperlipidemia, unspecified; E83.42 Hypomagnesemia; F17.200 Nicotine dependence, unspecified, uncomplicated; J44.9 Chronic obstructive pulmonary disease, unspecified; S30.1XXA Contusion of abdominal wall, initial encounter; Z79.02 Long term (current) use of antithrombotics/antiplatelets; Z79.82 Long term (current) use of aspirin; Z82.49 Family history of ischemic heart disease and other diseases of the circulatory system; Z86.73 Personal history of transient ischemic attack (TIA), and cerebral infarction without residual deficits; Z88.5 Allergy status to narcotic agent; Z79.899 Other long term (current) drug therapy
CPT/HCPCS: 36415; 37236; 71046; 75635; 78452; 80048; 80053; 80061; 82550; 82553; 83735; 84484; 85025; 85049; 85610; 85730; 93005; 93017; 93306; 93459; 93975; 94760; 96365; 96376; 99291